=== PATIENT | male | born 1955 | race Caucasian/White ===

== ENCOUNTER → 2019-08-02 08:57 | Outpatient (CLI) | payer OTHER, SELFPAY ==
[2019-08-02 09:18] LABS: Add Manual Diff / Slide Review NO; Basophils Absolute Auto 0 /uL (0-100); Basophils Percent Auto 0.6 % (0-2); Eosinophils Absolute Auto 100 /uL (0-450); Eosinophils Percent Auto 1.6 % (2-4); Hematocrit 44.6 % (41-53); Hemoglobin 15.2 g/dL (13.5-17.5); Lymphocytes Absolute Auto 1200 /uL (1100-4500); Lymphocytes Percent Auto 16.1 % (25-40); Mean Corpuscular HGB Conc 34.2 % (30-36); Mean Corpuscular Hemoglobin 30.6 PG (26-34); Mean Corpuscular Volume 89.6 fL (80-100); Monocytes Absolute Auto 600 /uL (0-900); Monocytes Percent Auto 7.8 % (3-14); Neutrophils Absolute Auto 5400 /uL (1500-7000); Neutrophils Percent Auto 73.9 % (50-75); Platelet Count 164 X10^3/uL (150-400); Red Blood Cell Count 4.97 X10^6/uL (4.5-5.9); Red Cell Distribution Width 13.7 % (11.6-14.8); White Blood Cell Count 7.4 X10^3/uL (4.5-11.0)
[2019-08-02 09:30] LABS: Alanine Aminotransferase 28 IU/L (<50); Albumin 4.8 g/dL (3.5-5.0); Albumin Globulin Ratio 1.5 (1.0-2.8); Alkaline Phosphatase 84 U/L (38-126); Aspartate Aminotransferase 31 IU/L (17-59); BUN Creatinine Ratio 19.5 (6-22); Bilirubin Total 0.8 mg/dL (0.2-1.3); Blood Urea Nitrogen 15 mg/dL (9-20); Calcium 9.6 mg/dL (8.4-10.2); Carbon Dioxide 21 mmol/L (22-32); Chloride 110 mmol/L (98-107); Estimated Glomerular Filt Rate > 60.0 mL/min (>60); Globulin 3.2 g/dL (1.7-4.1); Glucose 134 mg/dL (80-110); HEMOLYSIS 27 (0-50); Potassium 4.1 mmol/L (3.4-5.1); Sodium 141 mmol/L (137-145)
[2019-08-02 10:01] LABS: Prostate Specific Antigen < 0.064 ng/mL (0.10-4.00)
== END ==
PROVIDERS: Referring Provider Internal Medicine Hematology & Oncology; Visit Provider Internal Medicine Hematology & Oncology
DX: C61 Malignant neoplasm of prostate (principal)
CPT/HCPCS: 36415; 80053; 84153; 85025

== ENCOUNTER 2019-09-16 09:35 | Emergency (ER) | payer OTHER, SELFPAY ==
[2019-09-16 09:42] VITALS: BP 174/83; PULSE 78; RESP 14; TEMP 36.4; O2SAT 99; BMI 31.2
--- NOTE | 2019-09-16 10:49 | ED.BURNSMOKE ---
HPI - Burn/Smoke Inhalation General Chief complaint: Burn/Smoke Inhalation Stated complaint: rt hand burn 1xweek poss infection Time Seen by Provider: 09/16/19 10:48 Source: patient Mode of arrival: Ambulatory Limitations: no limitations History of Present Illness HPI Narrative: 63-year-old male comes to the emergency department with a complaint of burn to his right hand. Patient states it happened a week ago. He states that the area of burn with stable in size for the 1st 3 days and then he started noticing redness and blistering outside the edge of the burn and spreading. He has not had any fevers. He has had clear yellowish drainage and some whitish discoloration of the skin over the initial burn. He states that it has continued to use regularly since then. Patient denies any increasing swelling of his hand in general, redness has not been tracking out elsewhere. Patient is currently in treatment for prostate cancer and is hopefully concluding his treatment in the next several months. He has not had any, no chest pain or shortness of breath or other GI or urinary symptoms. He is currently living out on [facility]. He did initially put Neosporin followed by bacitracin on the area and occlusive dressing that he received from the pharmacy. Related Data Home Medications Medication Instructions Recorded Confirmed celecoxib 200 mg capsule 200 mg PO BID 12/06/18 08/02/19 diltiazem HCl 180 mg capsule,24 240 mg PO DAILY 12/06/18 12/06/18 hr,extended release leuprolide (3 month) IM 12/06/18 12/06/18 medroxyprogesterone 10 mg tablet 10 mg PO DAILY 12/06/18 08/02/19 triamcinolone acetonide 0.1 % 1 applictn TOP DAILY 12/06/18 08/02/19 topical cream Previous Rx's Medication Instructions Recorded clindamycin HCl 300 mg PO QID #28 cap 09/16/19 silver sulfadiazine [Silvadene] 1 applictn TOP BID #25 gram 09/16/19 Allergies Allergy/AdvReac Type Severity Reaction Status Date / Time No Known Drug Allergies Allergy Verified 09/16/19 09:42 Review of Systems Review of Systems ROS Unobtainable: All systems reviewed & are unremarkable except as noted in HPI and below Patient History Social History (Reviewed 09/16/19 @ 11:04 by ADRIAN Molina Smoking Status: Unknown if ever smoked Smoking Status: Unknown if ever smoked alcohol intake frequency: 3 or more drinks per day Substance Use Type: does not use Exam Narrative Exam Narrative: GENERAL: Alert and oriented x three, obese male in mild distress. HEENT: Head normocephalic, atraumatic, EOMI, pupils reactive, face symmetric, moist mucous membranes NECK: Supple, full range of motion CARDIOVASCULAR: Regular rate and rhythm without murmurs, rubs or gallops. RESPIRATORY: Breath sounds equal bilaterally, no wheezes rales or rhonchi. ABDOMEN: Soft, nontender. Normoactive bowel sounds all 4 quadrants. No guarding or rebound, rigidity, no mass EXTREMITIES: Normal range of motion, no clubbing or edema. Neurovascularly intact. Patient has an area that is rhomboid and shaved over his right 1st metacarpal region. There is erythema with some serosanguineous drainage but there is also some surrounding erythema with small blisters. Patient does have some whitish discoloration of the skin overlaying the main burn consistent with healing. There is no erythema tracking elsewhere. No purulent drainage. No foul odor. NEUROLOGICAL: Cranial nerves II through XII grossly intact. Moving all extremities SKIN: Warm, dry, no petechiae, no rashes or lesions. Initial Vital Signs Initial Vital Signs: Vital Signs Temperature 97.5 F L 09/16/19 09:42 Pulse Rate 78 09/16/19 09:42 Respiratory Rate 14 09/16/19 09:42 Blood Pressure 174/83 H 09/16/19 09:42 Pulse Oximetry 99 09/16/19 09:42 Course Vital Signs Vital signs: Vital Signs - 8 hr 09/16/19 09:42 Temperature 97.5 F L Pulse Rate 78 Respiratory Rate 14 Blood Pressure 174/83 H Pulse Oximetry 99 MDM - Burn/Smoke Inhalation MDM Narrative Medical decision making narrative: Discussed with patient this may be more of a reaction or sensitivity to the topical treatments he was using or even the bandage from his description he has had issues with bandages causing sensitivities in the past. [place] him a prescription for some Silvadene cream topically as well as some oral antibiotic as he is immune suppressed. We discussed stopping the Neosporin and bacitracin that he had been using. He and changing the type of dressing that he was using and allow the area air dry regularly. Strict return precautions were discussed. Discharge Plan Departure Patient Disposition: Home Clinical Impression: Burn of hand, right Discharge Date/Time: 09/16/19 11:22 Activity Restrictions/Additional Instructions: Follow-up in the next week if your hand is not beginning to heal. I would expect to notice some improvement in the redness and blistering over the next 2-3 days. Take antibiotics until completely gone. Use topical antibiotic twice daily to affected area. Wound Care: Keep wound(s) clean and dry. Wash daily with soap and water only. Do not use over the counter products (alcohol or peroxide)on the wounds unless instructed by a physician. If wound condition worsens (increased/expanding redness, developing fluid blisters, or worsening pain), either contact your doctor for an urgent re-assessment , or return to the Emergency Department. Return to the Emergency Department for any new or worsening symptoms. Return if fever greater than 100.4 Fahrenheit, increased swelling, increasing pain or worsening symptoms such as increased discharge or spreading redness, purulent drainage, foul odor, increasing blistering or other new or concerning changes. Prescriptions: New silver sulfadiazine [Silvadene] 1 % cream 1 applictn TOP BID Qty: 25 RF: 0 clindamycin HCl 300 mg capsule 300 mg PO QID Qty: 28 RF: 0 No Action leuprolide (3 month) IM RF: 0 celecoxib [Celebrex] 200 mg capsule 200 mg PO BID RF: 0 diltiazem HCl 180 mg capsule,extended release 24 hr 240 mg PO DAILY RF: 0 medroxyprogesterone 10 mg tablet 10 mg PO DAILY RF: 0 triamcinolone acetonide 0.1 % cream 1 applictn TOP DAILY RF: 0
== END 2019-09-16 11:22 | disposition home or self-care (01) ==
PROVIDERS: Emergency Provider Emergency Medicine
DX: T23.001A Burn of unspecified degree of right hand, unspecified site, initial encounter (principal); E66.9 Obesity, unspecified
CPT/HCPCS: 99282

== ENCOUNTER → 2020-01-02 10:52 | Outpatient (CLI) | payer OTHER, SELFPAY | PROVIDERS: PCP Internal Medicine; Referring Provider Internal Medicine; Visit Provider Internal Medicine | DX: Z71.3 Dietary counseling and surveillance (principal) ==

== ENCOUNTER → 2020-02-20 06:59 | Outpatient (CLI) | payer OTHER, SELFPAY ==
[2020-02-20 09:04] LABS: Add Manual Diff / Slide Review NO; Basophils Absolute Auto 0 /uL (0-100); Basophils Percent Auto 0.4 % (0-2); Eosinophils Absolute Auto 200 /uL (0-450); Eosinophils Percent Auto 2.3 % (2-4); Hematocrit 45.1 % (41-53); Hemoglobin 15.4 g/dL (13.5-17.5); Lymphocytes Absolute Auto 1300 /uL (1100-4500); Mean Corpuscular HGB Conc 34.2 % (30-36); Mean Corpuscular Hemoglobin 31.7 PG (26-34); Mean Corpuscular Volume 92.5 fL (80-100); Monocytes Absolute Auto 700 /uL (0-900); Monocytes Percent Auto 9.6 % (3-14); Neutrophils Absolute Auto 5100 /uL (1500-7000); Neutrophils Percent Auto 69.7 % (50-75); Platelet Count 199 X10^3/uL (150-400); Red Blood Cell Count 4.87 X10^6/uL (4.5-5.9); Red Cell Distribution Width 13.2 % (11.6-14.8); White Blood Cell Count 7.4 X10^3/uL (4.5-11.0)
[2020-02-20 09:25] LABS: Alanine Aminotransferase 63 IU/L (<50); Albumin 4.6 g/dL (3.5-5.0); Albumin Globulin Ratio 1.5 (1.0-2.8); Alkaline Phosphatase 93 U/L (38-126); Aspartate Aminotransferase 43 IU/L (17-59); BUN Creatinine Ratio 21.9 (6-22); Bilirubin Total 0.8 mg/dL (0.2-1.3); Blood Urea Nitrogen 16 mg/dL (9-20); Calcium 9.2 mg/dL (8.4-10.2); Carbon Dioxide 28 mmol/L (22-32); Chloride 106 mmol/L (98-107); Estimated Glomerular Filt Rate > 60.0 mL/min (>60); Glucose 94 mg/dL (80-110); HEMOLYSIS < 15 (0-50); Potassium 3.9 mmol/L (3.4-5.1); Sodium 141 mmol/L (137-145); Total Protein 7.6 g/dL (6.3-8.2)
[2020-02-20 09:49] LABS: Prostate Specific Antigen < 0.064 ng/mL (0.10-4.00)
[2020-02-20 14:46] LABS: Cholesterol 214 mg/dL (140-199); HDL Cholesterol 42 mg/dL (40-60); LDL Cholesterol Calculated 137 mg/dL (<100); Triglycerides 176 mg/dL (35-150)
[2020-02-21 17:04] LABS: Testosterone 47.1 ng/dL (71.8-623)
== END ==
PROVIDERS: Internal Medicine; PCP Internal Medicine; Referring Provider Internal Medicine; Visit Provider Internal Medicine
DX: C61 Malignant neoplasm of prostate (principal)
CPT/HCPCS: 36415; 80053; 80061; 84153; 84403; 85025

== ENCOUNTER → 2020-05-14 13:00 | Oncology outpatient (ONC) | payer OTHER, SELFPAY ==
--- NOTE | 2019-07-31 15:07 | ONC.SCHED ---
Addendum entered by Carly Juan 07/31/19 15:30: Notified patient of out of network benefits and patient agreed to pay amount due based on note below. Original Note: Prior auth is not needed to come here for visits or Lupron however, we are not in Network and so the patient's insurance plan will pay 70% after deductible.
--- NOTE | 2019-08-02 08:15 | ONC.MSW ---
Description: New Pt Referral Reason: Lupron shot, labs Activity: Pt is a [facility] patient, he is due for his last Lupron shot, however due to the virus is not wanting to go back down to [facility]. 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 This will be his only visit.
--- NOTE | 2019-08-02 09:15 | P.PNONC_ITS ---
PN -Subjective Interval history: The patient is a 63-year-old gentleman, followed by Dr. Venu Bradford, with high risk T1c, Sandor 4+5=9, PSA 10.9 for adenocarcinoma of the prostate in 12 of 15 cores. Prostate biopsies on 10/05/2017 showed Sandor 4+5=9 adenocarcinoma in the prostate in 12/15 cores with positive extraprostatic extension. Systemic imaging raised the question of left external iliac adenopathy on Axumin PET imaging, but with no evidence of distant osseous metastases. His bone scan showed foci in the lumbar spine and distal femur, consistent with degenerative changes. CT of the chest abdomen and pelvis showed an equivocal left para- aortic lymph node inferior to the left renal vein, which did not eliminate on his PET scan. He started Lupron on 11/30/2017, with the intent to remain on treatment for 1- 1/2 to 2 years. He is due for his final leuprolide injection today. Primary radiation was delivered between 02/01/2016 and 04/05/2018. Lymph nodes in the pelvis as well as the prostate received 4860 cGy using an arced VMAT technique with 180 cGy per day. He subsequently had a boost to the prostate alone to a total dose of 7920 cGy. He has done fairly well, struggling with insomnia. He has nocturia. No hematuria or dysuria. No incontinence. In the past he used to vape CBD, but di scontinued when reports of lung injury were published. Weight increase has made it more difficult to exercise. He is due for leuprolide 22.5 mg IM today, his final dose. PSA at [facility] has been less than 0.03 ng/mL on 08/17/2018, 02/01/2019, and 05/09/2019. PSA on 08/02/2019, done at [facility], was less than 0.064 ng/mL. - Additional ROS All systems PM: reviewed and no additional remarkable complaints except as stated Home Medications and Allergies Home Medications Medication Instructions Recorded Confirmed Type celecoxib 200 mg capsule 200 mg PO BID 12/06/18 12/06/18 History diltiazem HCl 180 mg capsule,24 180 mg PO DAILY 12/06/18 12/06/18 History hr,extended release leuprolide (3 month) IM 12/06/18 12/06/18 History medroxyprogesterone 10 mg tablet 10 mg PO DAILY 12/06/18 12/06/18 History triamcinolone acetonide 0.1 % 1 applictn TOP DAILY PRN 12/06/18 12/06/18 History topical cream Allergies Allergy/AdvReac Type Severity Reaction Status Date / Time No Known Drug Allergies Allergy Unverified 12/06/18 10:29 Exam Narrative: HEENT: Pupils equally round reactive to light extraocular muscles intact sclerae anicteric conjunctiva pink mucous membranes moist no oral lesions Nodes no palpable adenopathy in the neck axilla or groin Chest: Clear throughout Cardiac exam regular rate and rhythm with normal S1 and S2 Abdomen: Soft nontender with normoactive bowel tones no splenomegaly or masses Extremities: Trace pedal edema 2+ distal pulses no calf tenderness Assessment and Plan (1) Prostate cancer Current visit: No Status: Acute The patient is now about 22 months from his original diagnosis of Sandor 4+5=9 adenocarcinoma of the prostate on 10/05/2017. Imaging at diagnosis raised concern for left external iliac adenopathy, but no evidence of other disease. CT scan showed a left periaortic lymph node, which did not illuminate on PET imaging. He started Lupron on 11/30/2017, and has been on treatment every 3 months, due for his final injection of leuprolide 22.5 mg IM on 08/02/2019. He notes occasional hot flashes, partially controlled with medroxyprogesterone. Proceed with treatment. He received 4860 cGy radiation to the pelvis and prostate, with a subsequent boost to the prostate alone to a total dose of 7920 cGy, completed in April 2018. He had acute bowel and bladder symptoms associated with radiation, which have for the most part improved, although he still has urgency. Symptoms have improved with increased Imodium and fiber. Return in 3 months with repeat laboratory studies and clinical visit. No further leuprolide is scheduled.
[2019-08-02 10:07] VITALS: BP 130/86; PULSE 63; RESP 18; TEMP 36.3; O2SAT 98
[2019-08-02] MEDS: LEUPROLIDE DEPOT [ELIGARD] 22.5 MG SYR SUBCUT (11:14)
[2019-11-13 09:17] LABS: Add Manual Diff / Slide Review NO; Basophils Absolute Auto 100 /uL (0-100); Basophils Percent Auto 0.9 % (0-2); Eosinophils Absolute Auto 200 /uL (0-450); Eosinophils Percent Auto 2.8 % (2-4); Hematocrit 43.9 % (41-53); Hemoglobin 15.1 g/dL (13.5-17.5); Lymphocytes Absolute Auto 1300 /uL (1100-4500); Lymphocytes Percent Auto 17.2 % (25-40); Mean Corpuscular HGB Conc 34.5 % (30-36); Mean Corpuscular Hemoglobin 31.4 PG (26-34); Mean Corpuscular Volume 91.1 fL (80-100); Monocytes Absolute Auto 700 /uL (0-900); Monocytes Percent Auto 8.8 % (3-14); Neutrophils Absolute Auto 5500 /uL (1500-7000); Neutrophils Percent Auto 70.3 % (50-75); Platelet Count 176 X10^3/uL (150-400); Red Blood Cell Count 4.82 X10^6/uL (4.5-5.9); Red Cell Distribution Width 13.7 % (11.6-14.8); White Blood Cell Count 7.9 X10^3/uL (4.5-11.0)
[2019-11-13 09:25] LABS: Alanine Aminotransferase 36 IU/L (<50); Albumin 4.6 g/dL (3.5-5.0); Albumin Globulin Ratio 1.6 (1.0-2.8); Alkaline Phosphatase 82 U/L (38-126); Aspartate Aminotransferase 33 IU/L (17-59); BUN Creatinine Ratio 19.6 (6-22); Bilirubin Total 0.8 mg/dL (0.2-1.3); Blood Urea Nitrogen 18 mg/dL (9-20); Calcium 9.9 mg/dL (8.4-10.2); Carbon Dioxide 27 mmol/L (22-32); Chloride 106 mmol/L (98-107); Estimated Glomerular Filt Rate > 60.0 mL/min (>60); Globulin 2.9 g/dL (1.7-4.1); Glucose 102 mg/dL (80-110); HEMOLYSIS < 15 (0-50); Potassium 4.7 mmol/L (3.4-5.1); Sodium 141 mmol/L (137-145); Total Protein 7.5 g/dL (6.3-8.2)
[2019-11-13 09:59] LABS: Prostate Specific Antigen < 0.064 ng/mL (0.10-4.00)
[2019-11-15 09:24] VITALS: BP 146/87; PULSE 70; RESP 18; TEMP 36.6; O2SAT 98
--- NOTE | 2019-11-15 10:00 | ONC.MSW ---
Description: Advanced Directive, Support Activity: Pt indicated that he was interested in discussing the POLST form, and that he was having sexual difficulties as a result of his Lupron. HELPER SHEAR OPERATOR provided the POLST and discussed how to complete, he states that he already has an updated Living Will and Durable Power of Sausage Machine Operator (). He reports that he has been in treatment for the last 2-years at [facility], just finished his last Lupron shot, and is here to continue active surveillance/survivorship. He reports symptoms of hot flashes, emotional lability, and sexual dysfunction, even with the use of ED medications. HELPER SHEAR OPERATOR offered teaching and information re: normalizing this experience, and encouraged him to discuss his specific concerns with Dr. Cervantes during his appt. today. He declines the need for further counseling, and states that he did have a few sessions of prostate cancer specific counseling while at [facility]. Completed the form during this visit, pt wishes to be a Full Code. No further needs indicated at this time.
--- NOTE | 2019-11-15 17:11 | P.PNONC_ITS ---
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 In October of 2017 at a prostate biopsy that showed a Sandor 4+5=9 carcinoma in 12 of 15 cores with a PSA of 10.9. Bone scan was negative. CT scan of the chest, abdomen and pelvis showed a possible left periaortic lymph node. PET scan (Axumin) showed a possible external iliac lymph node on the left but the periaortic node was negative. In October of 2017 he started on Lupron. He subsequently underwent radiation therapy from January to April of 2018. His last Lupron injection was 3 months ago in August. He comes today for a follow-up visit having completed 2 years of androgen deprivation therapy. He is having issues with hot flashes. They are a little better over the last week or 2 and he has reduced his Megace from 2 pills a day to 1. He also has had a little more energy and has been able to exercise more. He has lost some weight recently. His libido has not recovered yet. He continues to have episodic diarrhea. He is trying to eat a low-fiber diet which has helped with this. He notes dyspnea on exertion but attributes this to deconditioning and it has not been changed for a quite some time. He denies other pain, bleeding, localized weakness, fever, chills, nausea, vomiting, cough or shortness of breath. All other systems are negative. Past medical history 1. He is . 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 He is alone in the office today. His past history is otherwise reviewed was previous notes. - Patient Self-Reported Symptoms SR respiratory issues: Shortness of breath SR Gastrointestinal issues: Diarrhea SR Genitourinary issues: Sexual difficulties SR Musculoskeletal issues: Joint pain or swelling SR Endocrine issues: Hot flashes Home Medications and Allergies Home Medications Medication Instructions Recorded Confirmed Type celecoxib 200 mg capsule 200 mg PO BID 12/06/18 11/15/19 History diltiazem HCl 180 mg capsule,24 240 mg PO DAILY 12/06/18 11/15/19 History hr,extended release medroxyprogesterone 10 mg tablet 10 mg PO DAILY 12/06/18 11/15/19 History triamcinolone acetonide 0.1 % 1 applictn TOP DAILY 12/06/18 11/15/19 History topical cream Allergies Allergy/AdvReac Type Severity Reaction Status Date / Time No Known Drug Allergies Allergy Verified 09/16/19 09:42 Exam Vital signs: Vital Signs Temp Pulse Resp BP Pulse Ox 11/15/19 09:24 97.8 F 70 18 146/87 H 98 Intake and Output 11/15/19 11/15/19 11/15/19 07:59 15:59 23:59 Other: Weight 120.5 kg Patient Weight 11/15/19 23:59 Weight 120.5 kg Narrative: He was awake, alert and orient x3. Fullyd in no acute distress. Results - Labs Laboratory Last Values WBC 7.9 X10^3/uL (4.5-11.0) 11/13/19 08:57 RBC 4.82 X10^6/uL (4.5-5.9) 11/13/19 08:57 Hgb 15.1 g/dL (13.5-17.5) 11/13/19 08:57 Hct 43.9 % (41-53) 11/13/19 08:57 MCV 91.1 fL (80-100) 11/13/19 08:57 MCH 31.4 PG (26-34) 11/13/19 08:57 MCHC 34.5 % (30-36) 11/13/19 08:57 RDW 13.7 % (11.6-14.8) 11/13/19 08:57 Plt Count 176 X10^3/uL (150-400) 11/13/19 08:57 Neut % (Auto) 70.3 % (50-75) 11/13/19 08:57 Lymph % (Auto) 17.2 % (25-40) L 11/13/19 08:57 Caroline % (Auto) 8.8 % (3-14) 11/13/19 08:57 Eos % (Auto) 2.8 % (2-4) 11/13/19 08:57 Baso % (Auto) 0.9 % (0-2) 11/13/19 08:57 Neut # (Auto) 5500 /uL (6704-2854) 11/13/19 08:57 Lymph # (Auto) 1300 /uL (6128-9969) 11/13/19 08:57 Caroline # (Auto) 700 /uL (0-900) 11/13/19 08:57 Eos # (Auto) 200 /uL (0-450) 11/13/19 08:57 Baso # (Auto) 100 /uL (0-100) 11/13/19 08:57 Sodium 141 mmol/L (137-145) 11/13/19 08:57 Potassium 4.7 mmol/L (3.4-5.1) 11/13/19 08:57 Chloride 106 mmol/L (98-107) 11/13/19 08:57 Carbon Dioxide 27 mmol/L (22-32) 11/13/19 08:57 BUN 18 mg/dL (9-20) 11/13/19 08:57 Creatinine 0.92 mg/dL (0.66-1.25) 11/13/19 08:57 Estimated GFR > 60.0 mL/min (>60) 11/13/19 08:57 BUN/Creatinine Ratio 19.6 (6-22) 11/13/19 08:57 Glucose 102 mg/dL (80-110) 11/13/19 08:57 Calcium 9.9 mg/dL (8.4-10.2) 11/13/19 08:57 Total Bilirubin 0.8 mg/dL (0.2-1.3) 11/13/19 08:57 AST 33 IU/L (17-59) 11/13/19 08:57 ALT 36 IU/L (<50) 11/13/19 08:57 Alkaline Phosphatase 82 U/L (38-126) 11/13/19 08:57 Total Protein 7.5 g/dL (6.3-8.2) 11/13/19 08:57 Albumin 4.6 g/dL (3.5-5.0) 11/13/19 08:57 Globulin 2.9 g/dL (1.7-4.1) 11/13/19 08:57 Albumin/Globulin Ratio 1.6 (1.0-2.8) 11/13/19 08:57 Prostate Specific Ag < 0.064 ng/mL (0.10-4.00) L 11/13/19 08:57 Assessment and Plan (1) Prostate cancer Status: Acute Dr. Weir continues to do well. He has PSA remains undetectable. His other lab work is normal. He has completed 2 years of anti androgen deprivation therapy. We discussed standard follow-up. Would plan to check a PSA and clinical assessment every 6 months until he is 5 years out and then we could switch to an annual follow-up. We also discussed the importance of regular exercise of at least 3 hours a week. We reviewed the importance of a Mediterranean diet. He was given written information about these interventions and we discussed strategies to implemented maintain these recommendations. He was also referred to nutrition services for more information about a Mediterranean diet. He is also in need of a primary care physician. He was referred to Dr. Stanley Howard's group for this. Will plan to see him back here in about 6 months with a CBC, CMP, and PSA prior. Call if any other problems should develop in the interim. Will plan to watch month treatment LS shows evidence of disease progression in the future. Discussed the fact that his PSA is likely to go up off of Lupron since his absentee-shawnee prostate remains in place. Accordingly, we would not worry unless it were to go more than 2 units above saloni according to NCCN guideline. I personally spent 26 minutes in today's [id number] visit with greater than 50% of the time spent in counseling regarding the issues outlined above.
--- NOTE | 2019-11-29 15:58 | ONC.SCHED ---
Spoke with Humera in Dietary and she requested I fax the order/referral to [phone]. She will call the patient tomorrow.
--- NOTE | 2019-11-29 16:53 | ONC.SCHED ---
Faxed referral to Dr. Stanley Howard.
--- NOTE | 2020-02-08 15:34 | PC.NURSE ---
Pt requesting to have testosterone lab added to next lab draw, in May 2020. Will place this note in providers box as request to enter orders if appropriate.
[2020-02-08] MEDS: INFLUENZA HD VACCINE 0.7 ML SYRINGE IM (15:58)
--- NOTE | 2020-04-01 11:29 | PC.NURSE ---
Pt c/o not having an erection for previous 2 years. [facility] recommends therapeutic dose of cialis of 5 mg daily. Would like to know what Dr. Cervantes recommends. His Testosterone level on 02/20/20 was 47.1 ng/dL L (71.8-623)
[2020-05-07 10:20] LABS: Add Manual Diff / Slide Review NO; Basophils Absolute Auto 0 /uL (0-100); Basophils Percent Auto 0.7 % (0-2); Eosinophils Absolute Auto 200 /uL (0-450); Eosinophils Percent Auto 2.8 % (2-4); Hematocrit 43.6 % (41-53); Hemoglobin 14.9 g/dL (13.5-17.5); Lymphocytes Absolute Auto 1100 /uL (1100-4500); Mean Corpuscular Hemoglobin 31.2 PG (26-34); Mean Corpuscular Volume 91.7 fL (80-100); Monocytes Absolute Auto 600 /uL (0-900); Monocytes Percent Auto 9.9 % (3-14); Neutrophils Absolute Auto 4200 /uL (1500-7000); Neutrophils Percent Auto 68.6 % (50-75); Platelet Count 147 X10^3/uL (150-400); Red Blood Cell Count 4.76 X10^6/uL (4.5-5.9); Red Cell Distribution Width 13.4 % (11.6-14.8)
[2020-05-07 10:22] LABS: Alanine Aminotransferase 53 IU/L (<50); Albumin 4.2 g/dL (3.5-5.0); Albumin Globulin Ratio 1.6 (1.0-2.8); Alkaline Phosphatase 83 U/L (38-126); Aspartate Aminotransferase 42 IU/L (17-59); BUN Creatinine Ratio 23.3 (6-22); Bilirubin Total 0.5 mg/dL (0.2-1.3); Blood Urea Nitrogen 17 mg/dL (9-20); Calcium 9.6 mg/dL (8.4-10.2); Carbon Dioxide 28 mmol/L (22-32); Chloride 107 mmol/L (98-107); Estimated Glomerular Filt Rate > 60.0 mL/min (>60); Globulin 2.7 g/dL (1.7-4.1); Glucose 110 mg/dL (80-110); HEMOLYSIS < 15 (0-50); Potassium 4.1 mmol/L (3.4-5.1); Sodium 139 mmol/L (137-145); Total Protein 6.9 g/dL (6.3-8.2)
[2020-05-07 10:55] LABS: Testosterone 98.5 ng/dL (71.8-623)
[2020-05-14 13:13] VITALS: BP 118/53; PULSE 59; RESP 16; TEMP 36.9; O2SAT 97
--- NOTE | 2020-05-14 13:42 | ONC.PN ---
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 In October of 2017 at a prostate biopsy that showed a Sandor 4+5=9 carcinoma in 12 of 15 cores with a PSA of 10.9. Bone scan was negative. CT scan of the chest, abdomen and pelvis showed a possible left periaortic lymph node. PET scan (Axumin) showed a possible external iliac lymph node on the left but the periaortic node was negative. In October of 2017 he started on Lupron. He subsequently underwent radiation therapy from January to April of 2018. His last Lupron injection was in August. He comes today for a follow-up visit having completed 2 years of androgen deprivation therapy. His hot flashes are better. Then only occasional. His fatigue is better. He is exercising 30 minutes today, mostly walking. He has back pain when he walks for a longer period of time but he does not really have this trouble when he is biking. He has been eating a Mediterranean diet and this has been going well. He still has erectile dysfunction despite taking Cialis 5 mg daily. He denies any new pain, bleeding, localized weakness, fever, chills, nausea, vomiting, cough or shortness of breath. All other systems are negative. Past medical history 1. He is . 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 He is alone in the office today. His past history is otherwise reviewed was previous notes. - Patient Self-Reported Symptoms SR respiratory issues: Shortness of breath SR Gastrointestinal issues: Diarrhea SR Genitourinary issues: Sexual difficulties SR Musculoskeletal issues: Back or neck pain SR Endocrine issues: Hot flashes Home Medications and Allergies Home Medications Medication Instructions Recorded Confirmed Type celecoxib 200 mg capsule 200 mg PO BID 12/06/18 05/14/20 History diltiazem HCl 180 mg capsule,24 240 mg PO DAILY 12/06/18 05/14/20 History hr,extended release medroxyprogesterone 10 mg tablet 10 mg PO DAILY 12/06/18 05/14/20 History triamcinolone acetonide 0.1 % 1 applictn TOP DAILY 12/06/18 05/14/20 History topical cream tadalafil [Cialis] 5 mg PO DAILY #30 tab 04/02/20 05/14/20 Rx Allergies Allergy/AdvReac Type Severity Reaction Status Date / Time No Known Drug Allergies Allergy Verified 09/16/19 09:42 Exam Vital signs: Vital Signs Temp Pulse Resp BP Pulse Ox 05/14/20 13:13 98.4 F 59 L 16 118/53 L 97 Intake and Output 05/13/20 05/14/20 05/14/20 23:59 07:59 15:59 Other: Weight 120.3 kg Patient Weight 05/14/20 23:59 Weight 120.3 kg Narrative: He was awake, alert and orient x3. Fullyd in no acute distress. Results - Labs Laboratory Last Values WBC 6.0 X10^3/uL (4.5-11.0) 05/07/20 09:56 RBC 4.76 X10^6/uL (4.5-5.9) 05/07/20 09:56 Hgb 14.9 g/dL (13.5-17.5) 05/07/20 09:56 Hct 43.6 % (41-53) 05/07/20 09:56 MCV 91.7 fL (80-100) 05/07/20 09:56 MCH 31.2 PG (26-34) 05/07/20 09:56 MCHC 34.0 % (30-36) 05/07/20 09:56 RDW 13.4 % (11.6-14.8) 05/07/20 09:56 Plt Count 147 X10^3/uL (150-400) L 05/07/20 09:56 Neut % (Auto) 68.6 % (50-75) 05/07/20 09:56 Lymph % (Auto) 18.0 % (25-40) L 05/07/20 09:56 [place] % (Auto) 9.9 % (3-14) 05/07/20 09:56 Eos % (Auto) 2.8 % (2-4) 05/07/20 09:56 Baso % (Auto) 0.7 % (0-2) 05/07/20 09:56 Neut # (Auto) 4200 /uL (0335-5428) 05/07/20 09:56 Lymph # (Auto) 1100 /uL (5701-9073) 05/07/20 09:56 [place] # (Auto) 600 /uL (0-900) 05/07/20 09:56 Eos # (Auto) 200 /uL (0-450) 05/07/20 09:56 Baso # (Auto) 0 /uL (0-100) 05/07/20 09:56 Sodium 139 mmol/L (137-145) 05/07/20 09:56 Potassium 4.1 mmol/L (3.4-5.1) 05/07/20 09:56 Chloride 107 mmol/L (98-107) 05/07/20 09:56 Carbon Dioxide 28 mmol/L (22-32) 05/07/20 09:56 BUN 17 mg/dL (9-20) 05/07/20 09:56 Creatinine 0.73 mg/dL (0.66-1.25) 05/07/20 09:56 Estimated GFR > 60.0 mL/min (>60) 05/07/20 09:56 BUN/Creatinine Ratio 23.3 (6-22) H 05/07/20 09:56 Glucose 110 mg/dL (80-110) 05/07/20 09:56 Calcium 9.6 mg/dL (8.4-10.2) 05/07/20 09:56 Total Bilirubin 0.5 mg/dL (0.2-1.3) 05/07/20 09:56 AST 42 IU/L (17-59) 05/07/20 09:56 ALT 53 IU/L (<50) H 05/07/20 09:56 Alkaline Phosphatase 83 U/L (38-126) 05/07/20 09:56 Total Protein 6.9 g/dL (6.3-8.2) 05/07/20 09:56 Albumin 4.2 g/dL (3.5-5.0) 05/07/20 09:56 Globulin 2.7 g/dL (1.7-4.1) 05/07/20 09:56 Albumin/Globulin Ratio 1.6 (1.0-2.8) 05/07/20 09:56 Prostate Specific Ag 0.070 ng/mL (0.10-4.00) L 05/07/20 09:56 Testosterone Level 98.5 ng/dL (71.8-623) 05/07/20 09:56 Assessment and Plan (1) Prostate cancer Status: Acute Dr. Weir continues to do well. His PSA is barely into the detectable range. I explained that this is expected now he is off of androgen deprivation therapy and has not had a prostatectomy. His testosterone is come up into the low normal range. This is also expected off androgen deprivation therapy. His other lab work is normal. He has completed 2 years of anti androgen deprivation therapy as well as external beam radiation. We discussed standard follow-up. Would plan to check a PSA and clinical assessment every 6 months until he is 5 years out and then we could switch to an annual follow-up. We also discussed the importance of regular exercise of at least 3 hours a week. We reviewed the importance of a Mediterranean diet. We discuss using an exercise bike, especially in the winter. He continues to have erectile dysfunction. He will be referred to Urology for this. That referral was made today. Will continue to watch him off treatment. He will return in 6 months for follow-up with labs prior. Discussed the fact that his PSA is likely continue to go up but is lungs are remains below 2 and there are no other clinical issues, we would typically not worry about that. I spent 8 minutes in preparation, 22 minutes with the patient, 3 minutes entering orders a 6 minutes doing dictation for a total of 39 minutes.
--- NOTE | 2020-05-23 12:08 | ONC.SCHED ---
Gave referral to Urology last week forgot to put chart note in. Urology will be calling patient today to get him scheduled. Patient called asking about the referral and I called him back letting him know it was taken care of and to look out for the referral.
== END ==
PROVIDERS: Internal Medicine Hematology & Oncology; PCP Internal Medicine; Visit Provider Internal Medicine
DX: C61 Malignant neoplasm of prostate (principal)
CPT/HCPCS: 36415; 80053; 84153; 84403; 85025; 90471; 90662; 96372; 99214; 99215; J9217

== ENCOUNTER → 2021-06-04 09:01 | Outpatient (CLI) | payer OTHER, SELFPAY | PROVIDERS: PCP Internal Medicine; Referring Provider Orthopaedic Surgery; Visit Provider Orthopaedic Surgery | DX: Z01.818 Encounter for other preprocedural examination (principal) | CPT/HCPCS: 93005 ==

== ENCOUNTER → 2021-06-23 09:08 | Outpatient (CLI) | payer OTHER, SELFPAY ==
[2021-06-23 12:37] LABS: COVID19 -Nasal RAPID Negative (Negative)
== END ==
PROVIDERS: PCP Internal Medicine; Visit Provider Family Medicine Sleep Medicine
DX: Z20.822 Contact with and (suspected) exposure to COVID-19 (principal)
CPT/HCPCS: 87635; C9803

== ENCOUNTER 2021-06-25 06:33 | Day surgery (SDC) | payer OTHER, SELFPAY ==
[2021-06-23 13:53] VITALS: BMI 33.3
--- NOTE | 2021-06-25 06:53 | SUR.PREOP ---
Addendum entered by Puja Bahena R.N. 06/25/21 09:30: 0930-surgery cancelled. patient informed. Dr Coley here to speak with patient . plan for wednesday afternoon. pt aware of need for new covid test needed for Wednesday. npo information given by Dr Coley to patient. Discharged home ambulatory with all belongings to 's care/care. Addendum entered by Puja Bahena R.N. 06/25/21 08:36: 0815-hourly rounding. check on patient. no new needs. updated on progress. Reported to patient can update , next decision to be made at 9:30 am as to if surgery is a go or not today. Patient given angelo and has cell phone. call light remains at side in reach. Addendum entered by Puja Bahena R.N. 06/25/21 07:38: 0730am- Dr Coley here to talk with patient, explain delay and potentially able to add on for Wednesday if cancelled today. Will update patient when hospital decisions are made. patient understanding and in good spirits. Original Note: 06/25/21-649 patient brought back into preop area. Aware surgeries are all on Hold for now, will continue with preop assessment/data collection. IV on hold,preps on hold,meds on hold til notified surgery is a go for today.
[2021-06-25 07:05] VITALS: BP 150/91; PULSE 62; RESP 16; TEMP 37.1; O2SAT 97
[2021-06-25 07:08] VITALS: BMI 33.3
== END 2021-06-25 06:40 | disposition home or self-care (01) ==
PROVIDERS: PCP Internal Medicine; Referring Provider Orthopaedic Surgery; Visit Provider Orthopaedic Surgery
DX: M17.12 Unilateral primary osteoarthritis, left knee (principal); Z53.09 Procedure and treatment not carried out because of other contraindication
CPT/HCPCS: 27447; J1100; J2250; J2274; J2405; J2704; J3010

== ENCOUNTER → 2021-06-25 10:04 | Outpatient (CLI) | payer OTHER, SELFPAY ==
[2021-06-25 11:37] LABS: COVID19 -Nasal RAPID Negative (Negative)
== END ==
PROVIDERS: PCP Internal Medicine; Visit Provider Family Medicine Sleep Medicine
DX: Z20.822 Contact with and (suspected) exposure to COVID-19 (principal)
CPT/HCPCS: 87635; C9803

== ENCOUNTER 2021-06-27 13:13 | Day surgery (SDC) | payer OTHER, SELFPAY ==
[2021-06-25 12:35] VITALS: BMI 33.3
[2021-06-27] VITALS (10 sets, daily range): BP systolic 93–153; BP diastolic 56–108; PULSE 53–66; RESP 10–17; TEMP 36.3–36.9; O2SAT 85–97; BMI 33.3
--- NOTE | 2021-06-27 14:14 | SUR.OPER ---
Supine on padded OR bed. Pillow under head, arms secured on padded armboards <90 degree abduction. Safety belt across torso. Non-operative leg secured with tape over blanket over lower leg. Operative leg secured in DeMayo positioner.
[2021-06-27] MEDS: LACTATED RINGERS 1,000 ML 84 ML IV (15:00)
--- NOTE | 2021-06-27 15:00 | DI.RAD.S_ITS ---
PROCEDURE: XR KNEE LT 1TO2V INDICATIONS: post op total knee TECHNIQUE: 2 view(s) of the knee acquired. COMPARISON: None. FINDINGS: Bones: Patient is status post knee joint arthroplasty. Hardware components are in expected positions. 2.1 cm sclerotic focus in the distal femoral diaphysis, most consistent with a bone infarct. Visualized bony structures are intact. Soft tissues: Overlying postoperative changes are noted. IMPRESSION: Expected postsurgical change. Dictated by: Odell Orlando M.D. on 06/27/2021 at 19:24 Approved by: Odell Orlando M.D. on 06/27/2021 at 19:25
[2021-06-27] MEDS: ACETAMINOPHEN 325 MG TABLET 975 MG PO (15:02)
[2021-06-27] MEDS: CELECOXIB 200 MG CAPSULE PO ×2 (15:03→20:46)
[2021-06-27] MEDS: PREGABALIN 75 MG CAPSULE PO (15:03)
--- NOTE | 2021-06-27 15:08 | PM.PREOP ---
Pre-operative Note COVID-19 COVID-19 status: Negative Result date/Date tested (Pos, Neg/Pending): 06/25/21 Criteria for continued procedure: Increased loss of function, Continuing or worsening of significant or severe pain and Non-surgical alternatives not available or appropriate per current SOC Interval Note History & Physical reviewed/Exam performed by Physician: Yes Changes to H&P: No
[2021-06-27] MEDS: CEFAZOLIN 2 GM/20 ML SYRINGE IV (15:15)
[2021-06-27] MEDS: TRANEXAMIC ACID 1,000 MG VIAL 1000 MG INJ ×2 (15:18→16:44)
[2021-06-27] MEDS: BUPIVACAINE LIPOSOME 266 MG/20 ML VIAL INJ (16:26)
[2021-06-27] MEDS: BUPIVACAINE 0.25% (PF) 60 ML, EPINEPHrine 0.3 MG INJ (16:28)
[2021-06-27] MEDS: MORPHINE 4 MG/ML INJ INJ (16:31)
--- NOTE | 2021-06-27 17:04 | P.OP_ITS ---
Operative Date/Time/Diagnoses Date of procedure: 06/27/21 Time of procedure: 17:05 Pre-op diagnosis: Left knee osteoarthritis Post-op diagnosis: same Procedure & Clinicians Procedure: Left total knee replacement Same procedure as scheduled: Yes Indications: The patient has had progressively worsening left knee pain with radiographic changes consistent with arthritis. Non-operative management has failed and the patient has requested total knee replacement. The risks, benefits and alternatives to surgery were discussed with the patient prior to proceeding. Risks discussed included, but were not limited to, failure to relieve pain, stiffness, infection, nerve damage, deep venous thrombosis, pulmonary embolism, stroke, coma, heart attack, permanent paralysis and , as well as the potential need for eventual revision of the prosthetic. Surgeon: Herve Coley Heel Builder Machine: Matilde Arthur Click Yes if Unassisted: No Anesthesia Type: General, Spinal and Local Operative Notes Findings: Severe osteoarthritis of the patellofemoral joint. Moderate medial and lateral osteoarthritis. There appeared to be an inflammatory component to the osteoarthritis. Closure Type: primary Specimen(s): none sent Prosthetic devices, grafts, tissues, transplants, or devices: Implants used in this procedure were manufactured by the [email or web address] and [email or web address] and included the BCS II Journey total knee replacement with a size 7 Oxinium femoral component, a size 7 non porous tibial base plate, a 9 mm cross- linked polyethylene tibial insert and a 32 mm oval Odalys II patella. Applied: implant(s) Estimated Blood Loss (mL): 50 Blood products transfused: none Tourniquet time (min): 52 Procedure in detail: The patient was seen in the pre-operative area, where the left knee was identified as the operative site and this was marked with my initials. The patient received pre-operative antibiotics, and was taken to the operating room and placed on the operative table in the supine position. After satisfactory anesthesia, a perinatal breastfeeding assistant out was performed. The left leg was encircled with a tourniquet about the proximal thigh, and the leg was prepared from the toes to the tourniquet with ChloroPrep in the usual fashion and draped through sterile drapes. The leg was elevated and exsanguinated with Eschmark bandage and the tourniquet inflated to 250 mmHg pressure. The knee was approached through an approximately 18 cm incision centered over the patella and carried into the knee through a medial parapatellar arthrotomy. The anterior osteophytes and soft tissues were removed. The rotational landmarks of Kacey's line and the transepicondylar axis were marked on the femur with electrocautery, and intramedullary guide holes for the femur and tibia were created. The distal femoral cut was made in 6 degrees of valgus using the intramedullary guide at the primary cut setting. The proximal tibial cut was then made using the intramedullary guide, taking 9 mm of bone off the less involved side. The extension gap was checked and the rotation of the femoral component confirmed with the gap balancing blocks. The anterior, posterior and chamfer cuts were then made. The posterior osteophytes and soft tissues were then removed. The posterior capsule was injected with part of a mixture of 60 ml 0.25% Marcaine mixed with 20 ml Exparel and 4 mg of morphine for post-operative pain control. The remainder of this mixture was injected into the capsule and subcutaneous tissues during cement curing. The tibia was prepared with the rotation set by an extra medullary guide. Trial tibial and femoral components were then placed and the intercondylar notch cut through the femoral trial. Range of motion was 0-130 degrees, with good s tability throughout the range. The patella was then cut to accommodate the patellar prosthetic. There was no need for a lateral release. The trials were then removed, and the femoral hole plugged with a bone plug. The bone was prepared with pulsatile lavage, and dried with a sponge. Cement was applied and the final prosthetics placed. Excess cement was removed during and after cement curing. After confirming there was no extruded cement posteriorly, the final tibial insert was placed. The knee was copiously irrigated and the tourniquet deflated. Hemostasis was obtained. The capsule was closed with interrupted # 2 polyester sutures. The subcutaneous layer was closed with 3-0 Vicryl, and the skin with a running 3-0 V-Lock suture and Dermabond. An Aquacel Ag dressing was applied and the patient was taken to recovery having tolerated the procedure well. Complications: none Post-operative Condition: stable Disposition: PACU Plan for aftercare: The patient will be maintained on a standard total knee replacement protocol with weight bearing as tolerated. The patient will receive aspirin and sequential compression devices for DVT prophylaxis. The patient will be discharged home when safe for the home environment.
--- NOTE | 2021-06-27 18:09 | SUR.PHASEI ---
Late entry: Pt arrived to PACU, room aier sats 85%, 02 via nasal cannula added, sats up to mid 90's, 02 weaned off, room air sats wnl, eating ice no nausea, no pain/discomfort, report to [facility], pt transported up to room, bed low, lock SCD's on, pt left with [facility]ak in stable condition.
[2021-06-27] MEDS: LACTATED RINGERS 1,000 ML 100 ML IV (18:31)
--- NOTE | 2021-06-27 18:38 | PC.NURSE ---
Day Shift - Pt arrived on floor at 1814. Bilateral calf SCD'S applied. Incision on knee is covered w/aquacell dressing and chung wrap CMS is intact and CDI. VSS aside from Bradycardia HR in the mid to low 50's, Pt states that is normal for him. Pt has no feeling in left leg and unable to move at this time. pedal pulses are strong bilaterally and blood return less than two seconds on toes. Did Pt teaching of incentive spirometer and ankle waves Pt verbalized understanding. Bed alarm is on and Pt agrees to call for help. Pt denies pain at this time. Spouse is in the room.
[2021-06-27] MEDS: dilTIAZem CD 180 MG CAP PO (20:46)
[2021-06-27] MEDS: ASPIRIN EC 81 MG TABLET PO (20:46)
[2021-06-27] MEDS: ACETAMINOPHEN 325 MG TABLET 650 MG PO (20:46)
[2021-06-27] MEDS: DOCUSATE 100 MG CAPSULE PO (20:46)
[2021-06-28] MEDS: hydrOXYzine pamoate 25 MG CAPSULE PO (00:03)
[2021-06-28 04:11] VITALS: BP 127/84; PULSE 79; RESP 17; TEMP 36.8; O2SAT 93
[2021-06-28] MEDS: LACTATED RINGERS 1,000 ML 100 ML IV (04:13)
[2021-06-28 05:43] LABS: Hematocrit 46.4 % (41-53); Hemoglobin 15.4 g/dL (13.5-17.5)
--- NOTE | 2021-06-28 06:33 | PC.NURSE ---
Pt had an uneventful shift. Denied pain and rested calmly in bed. He ate his entire dinner and drank water throughout shift. Dressing to L knee CDI. L foot is warm, pink and has strong pulse. Pt had not voided all shift. After bladder scan of 518ml, pt requested to sit at edge of bed to void at 0615. Pt positioned self without assistance and knows not to bear weight on L leg. Pt denied pain meds at the time reporting 4/10 L knee pain.
[2021-06-28 07:49] VITALS: BP 111/75; PULSE 65; TEMP 37.1; O2SAT 93
--- NOTE | 2021-06-28 09:04 | PM.DS.1 ---
History of Present Illness History of Present Illness Date Patient Seen: 06/28/21 Time Patient Seen: 09:05 Chief complaint: LT TKA *OPB* Narrative: The history and physical is contained in the chart previously completed note. Please refer to that note for this information. Discharge Providers Provider Date of admission: June 27, 2021 Discharge Date: 06/28/21 Primary care physician: Bety Carrion DO Consults: 06/27/21 17:43 Consult to Discharge Planning Routine Comment: Consult to Physical Therapy Evaluate & Treat Comment: Physician Instructions: postop TKA protocol Discharge provider: Herve Coley MD Summary Hospital Course Discharge Diagnosis: Left knee osteoarthritis Hospital Course: The patient was admitted to the hospital and taken directly to the operating room on June 27, 2021. He underwent a left total knee replacement without complications. On postoperative day 1 he was quite comfortable but had not yet attempted to ambulate. At the time of this dictation it is predicted he will be able to ambulate well enough to go home later this afternoon. Status at Discharge Cognitive/behavioral status at discharge: at baseline, oriented Functional status at discharge: uses cane/walker Overall status at discharge: patient is progressing back to baseline Time Spent with Patient Time spent: Less than 30 minutes Exam Vital Signs (past 8 hours): - 06/28/21 04:11 06/28/21 07:49 Temperature 98.3 F 98.7 F Pulse Rate 79 65 Respiratory Rate 17 Blood Pressure 127/84 111/75 Pulse Oximetry 93 93 Oxygen Delivery Method Room Air Oxygen Flow Rate 0 Narrative Exam Narrative: Left knee wound is dressed with no drainage on the bandage. Calf is soft. Light touch and motion are intact in the left lower extremity. Objective Labs Result Diagrams: 06/28/21 05:30 Labs: Laboratory Results - last 24 hr 06/28/21 05:30 Hgb 15.4 Hct 46.4 PFSH Medical History Afib (~2016) BCC (basal cell carcinoma) Chronic back pain Erectile dysfunction following radiation therapy History of cardioversion (~2016) History of Mohs micrographic surgery for skin cancer Hypertension Lactose intolerance Prostate cancer (10/12/17) Surgical History History of circumcision History of colonoscopy Hx of arthroscopy of left knee Family History Mother Spindle cell sarcoma Father Hypertension Alzheimer disease Social History marital status: household members: spouse occupational status: employed Smoking Status: Former smoker alcohol intake: current caffeine: No Discharge Assessment & Plan Assessment and Plan Assessment: Doing well postoperative day 1 status post left total knee replacement. He should be able to mobilize well enough to discharge today. He has already urinated. Plan of Treatment: Discharge today. Follow up at my office in 10-14 days. 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 He has been instructed on the use of Tylenol and the ongoing use of Celebrex for pain control. He has been instructed on the use of low-dose aspirin for DVT prophylaxis. Discharge Plan Discharge Plan Patient Disposition: Home Discharge orders & Medications Discharge Orders: Discharge (Order); Ordered 06/28/21 Ordered By: Herve Coley Prescriptions: New acetaminophen 325 mg Tablet 650 mg PO TID 30 Days Qty: 180 0RF aspirin 81 mg Tablet,Delayed Release (Dr/Ec) 81 mg PO BID 42 Days Qty: 84 0RF oxycodone 5 mg Tablet 5 mg PO Q4H PRN (Reason: Pain, Moderate (4-6)) Qty: 40 0RF hydroxyzine pamoate 25 mg Capsule 25 mg PO Q6HR PRN (Reason: Nausea) Qty: 30 0RF Continued celecoxib [Celebrex] 200 mg capsule 200 mg PO BID 0RF diltiazem HCl 180 mg capsule,extended release 24 hr 180 mg PO BID 0RF triamcinolone acetonide 0.1 % cream 1 applictn TOP DAILY 0RF Label Comments: 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 1-1 1/2 hours before intercourse daily as needed. Discontinued aspirin [Adult Aspirin Regimen] 81 mg tablet,delayed release (DR/EC) 81 mg PO DAILY 0RF Follow up/Referrals: Bety Carrion DO [Primary Care Provider] - Herve Coley MD [Physician] - 2 Weeks Diet/Activity/Treatments Diet: Diet as Tolerated and Regular Activity: You may bear weight as tolerated on your right leg. Cold/Heat Therapy: You may apply ice for 15 minutes of every hour to the left knee as needed for pain control. Skin/Wound/Dressing Care Report to your healthcare provider any signs of infection, such as:: chills, fever, night sweats, increased pain, unusual drainage and unusual redness Dressing: Leave the Devyn wrap intact until 3 days after surgery. You may then remove the Devyn wrap and shower normally with the deeper dressing in place. Do not submerge the dressing under water. If the central strip of the deeper dressing becomes saturated with either water or blood, please call the office to have it evaluated. Visit Report/Discharge Packet Instructions: DI for Knee Replacement Stand Alone Forms: Surgery Discharge Discharge Data Primary Care Provider: Bety Carrion Attending Provider: Herve Coley Quality VTE Deep Vein Thrombosis/Pulmonary Embolism Present on Admission: No
[2021-06-28] MEDS: dilTIAZem CD 180 MG CAP PO (09:21)
[2021-06-28] MEDS: ASPIRIN EC 81 MG TABLET PO (09:21)
[2021-06-28] MEDS: CELECOXIB 200 MG CAPSULE PO (09:22)
[2021-06-28] MEDS: ACETAMINOPHEN 325 MG TABLET 650 MG PO (09:22)
[2021-06-28] MEDS: DOCUSATE 100 MG CAPSULE PO (09:22)
--- NOTE | 2021-06-28 09:35 | PT.IIE ---
Current Diagnoses Unilateral primary osteoarthritis, left knee (06/27/21) Surgery Performed Operation Date: 06/27/21 15:00 Actual Procedures p Total Knee Arthroplasty(Left) - Herve Coley MD Medical History (Last Reviewed 06/25/21 @ 07:05 by Puja Bahena RN) Afib (~2016) BCC (basal cell carcinoma) Chronic back pain Erectile dysfunction following radiation therapy History of cardioversion (~2016) History of Mohs micrographic surgery for skin cancer Hypertension Lactose intolerance Prostate cancer (10/12/17) Physical Therapy Inpatient Evaluation/Re-Eval M1 PT/OT-IP Prior Functional Status Start: 06/28/21 12:19 Freq: NEEDED Status: Active Protocol: Document 06/28/21 09:35 AB (Rec: 06/28/21 12:35 AB [email or web address]) Medical Review Prior Functional Status Medical History Reviewed Yes Communication able to make needs known Mobility and Gait pt stated that he is independent with all mobilities and ambulation without AD; uses a hiking pole for uneven surface mobility Social History Household Members spouse Living Arrangements House Number of Floors (Floors) Two Floors Number of Stairs To Enter/Railing? pt will stay on the main level of the house 3 steps R rail to enter the house Home Environment High Toilet,Walk in Shower Home Equipment Front Wheel Walker,Shower Seat without Backrest,Grab Bars Near Toilet Additional Social History Comment pt works as a professor spouse will be off work for ~ 3weeks to assist pt M2 PT-IP Current Condition Start: 06/28/21 12:19 Freq: NEEDED Status: Active Protocol: Document 06/28/21 09:35 AB (Rec: 06/28/21 12:35 AB [email or web address]) Physical Therapy Current Condition Current Condition Evaluation Date 06/28/21 Treatment Diagnosis s/p L TKA; difficulty in walking Onset Date 06/27/21 M3 PT-IP Subjective Start: 06/28/21 12:19 Freq: NEEDED Status: Active Protocol: Document 06/28/21 09:35 AB (Rec: 06/28/21 12:35 AB [id number]) Subjective Physical Therapy Visit Type Type Initial Evaluation Visit Start Time 09:35 Visit Stop Time 10:51 Total Visit Minutes 76 Number of CLINICAL PHARMACY COORDINATOR Visits 0 Therapy Pain Assessment Pain When Pain Assessed At Rest Pain Present Pain Present Pain Reported Location Left Knee Intensity 3 Scale Used increases to 6/10 with mobility Pain Management Techniques Apply Cold,Elevation, Modification of Treatment,Re- positioning,Timing of Activity with Medications M4 PT-IP Mobility and Gait Start: 06/28/21 12:19 Freq: NEEDED Status: Active Protocol: Document 06/28/21 09:35 AB (Rec: 06/28/21 12:35 AB [id number]) PT-Bed Mobility Assessment Supine to Sit Supine to Sit Standby Assistance Sit to Supine Sit to Supine Standby Assistance PT-Transfer Assessment Sit to and From Stand Sit to and from Stand Contact Guard Assistance, Minimal Assistance,1 Person Assistance,Use of Upper Extremities Equipment Transfer Assistive Device Gait Belt,Front Wheeled Walker Orthotic/Prosthetic Devices or Brace: No Comments Mobility Comments pt with spouse and trying to get dressed. pt reaching on the EOB with walker on the side and trying to put his boxers on in standing position . pt sat backdown . positioned FWW in front of pt to pull boxers on. educated pt on safety. pt can be impulsive. pt with increase forward trunk posture and increase L knee flexion in standing. educated pt on upright posture and quads activation. instructed for single leg stance using FWW for support to assess appropriateness for stair climbing. pt initially requiring max A and max cues and was only able to hold for ~ 3 sec. pt educated on techniques and repeated again and min to mod A needed and was able to hold for ~ 6 sec. pt demonstrated bed mobility sit <>supine SBA and cues for techniques. caregiver training conducted. educated spouse on how to use safety belt and how to assist pt. spouse was able to put safety belt on pt. assisted pt with sit to stand and ambulation using FWW ~ 150 ft CGA to min A. pt cued to slow down, quads activation, upright posture and cues for safety. pt sat on w/c and rested. educated pt on stair climbing techniques using R rail. educated spouse on how to assist pt. pt completed up/ down 3 steps holding on to R rail with B hands and spouse assisting min A to mod A but initially requires PT's cues for techniques. repeated again but without cues from PT . pt assisted back to his room. pt ambulated from w/c to chair using FWW CGA to min A with spouse assisting. positioned pt on chair. call light and table placed within reach. Gait Assessment Gait Gait Assistance Required: Contact Guard Assist,Minimum Assistance Distance (Feet) 150 Able to Maintain Weight Bearing Status Yes During Gait Assistive Devices Assistive Device Gait Belt,Front Wheeled Walker Orthotic/Prosthetic Devices or Brace: No Gait Deviations General Gait Pattern Antalgic,Decreased Stride Length,Decreased Feet Clearance,Lateral Trunk Lean Factors Limiting Gait Function Factors Limiting Gait Function Decreased Activity Tolerance, Decreased Strength,Difficulty Following Directions,Limited Range of Motion,Pain,Poor Balance,Poor Safety Awareness Stair Climbing Assessment Evaluation Level of Assist On Stairs Minimal Assistance,Moderate Assistance,1 Person Assistance Devices Stair Climbing Assistive Devices Right Railing Technique/Endurance Stair Climbing Direction Ascend and Descend Stair Climbing Technique Step to Step Number of Steps Climbed 3 Query Text: Stair Climbing Set # Repetitions (reps) 2 PT-Balance Assessment Sitting Balance and Reactions Static Sitting Balance Ability Good Dynamic Sitting Balance Ability Good Standing Balance and Reactions Static Standing Balance Ability Fair Dynamic Standing Balance Ability Fair Device Used FWW M5 PT-IP Objective Assessments Start: 06/28/21 12:19 Freq: NEEDED Status: Active Protocol: Document 06/28/21 09:35 AB (Rec: 06/28/21 12:35 [email or web address]) Orientation Orientation/Cognition Level of Alertness Alert Orientation Name Language Function Ability No Deficits Noted Safety Awareness Decreased Safety Awareness Memory Description No Deficits Noted Gross Range of Motion Lower Extremity ROM Assessment Left Impaired Impairments L knee flexion: ~ 50 deg L knee extension: ~ 30 deg less to 0 Strength Lower Extremity Strength Assessment Left Impaired Hip 3+/5 Knee 3+/5 Coordination Assessment Gross Coordination Gross Coordination WNL Sensation Assessment Sensation Gross Sensation WNL Muscle Tone Muscle Tone WNL Yes M6 PT-IP Treatment Start: 06/28/21 12:19 Freq: NEEDED Status: Active Protocol: Document 06/28/21 09:35 AB (Rec: 06/28/21 12:35 AB [email or web address]) Physical Therapy Treatment Education Education Provided Precautions,Weight Bearing Status,Post-Op Packet,Safety M7 PT-IP Assessment and Plan Start: 06/28/21 12:19 Freq: NEEDED Status: Active Protocol: Document 06/28/21 09:35 AB (Rec: 06/28/21 12:35 AB [email or web address]) PT Summary Assessment and Plan Potential Rehabilitation Potential Fair Status of Condition at Evaluation Stable Summary Impairments Pain,ROM,Strength,Balance, Coordination,Sensation,Tone, Cognition,Bed Mobility, Transfers,Gait,Activity Tolerance Assessment Summary pt requiring min to mod A with mobility. caregiver training conducted and spouse was able to assist pt safety. pt plans to go home today and has outpt PT set up. pt may go home when medically stable. Goals Bed Mobility Goal Independent Transfer Goal Independent,Front Wheeled Walker Gait Goal Independent,Front Wheel Walker Gait Distance 200 Other Goals up/down 3 steps R rail SBA Days to Meet Goals 5 Frequency of Treatment Frequency Of Treatment Twice a Day Treatment Plan Physical Therapy Treatment Plan Bed Mobility Training,Transfer Training,Gait Training, Therapeutic Exercise,Balance Retraining,Post Op Education, Discharge Planning,Hot or Cold Pack,Neuromuscular Re-ed, Coordination Retraining,Manual Therapy Weight Bearing Status Weight Bearing Status Weight Bear as Tolerated Allowed Weight Bearing Amount (enter % LLE WBAT or #) (%) Recommendations To Nursing Amount of Assist Needed 1 Person Assist Discharge Recommendations PT Discharge Recommendations Home with Assistance, Outpatient PT Transportation Needs at Discharge Private Vehicle
[2021-06-28] MEDS: OXYCODONE IR 10 MG TABLET PO (10:22)
--- NOTE | 2021-06-28 12:02 | CM.DANOTE ---
DCP Brief Assessment Note Patient is a 65 yo male who was admitted on 06/27/21 for LTKA. Pt has [employer] for insurance and his PCP is Dr. Bety Carrion. EMR was reviewed. Per Ortho MD, pt tolerated procedure well and likely is stable for d/c home with spouse today pending PT eval and recommendations. PT was able to ambulate pt today with spouse bedside and SW observed spouse participating in CG training with ambulation down the garcia and headed towards stairs for stair training. Pt dressed and appeared ready for d/c and currently no barriers to discharge identified. Brief assessment done due to triage needs and no identified discharge needs currently. Plan: SW to follow for plan of d/c home this afternoon via spouse POV and no SW needs at this time, please refer if indicated. TYSHAWN Hoover
== END 2021-06-28 12:45 | disposition home or self-care (01) ==
LOC: OR 13:15 → AC 13:15
PROVIDERS: PCP Student in an Organized Health Care Education/Training Program; Referring Provider Orthopaedic Surgery; Visit Provider Orthopaedic Surgery
PROC: 0SRD0JZ Replacement of Left Knee Joint with Synthetic Substitute, Open Approach (ICD-10-PCS; CPT 27447; principal; 2021-06-27 15:00)
DX: M17.12 Unilateral primary osteoarthritis, left knee (principal); I10 Essential (primary) hypertension; I48.0 Paroxysmal atrial fibrillation
CPT/HCPCS: 27447; 36415; 73560; 85014; 85018; 97161; 97530; C1776; C9290; J0171; J0690; J2270

== ENCOUNTER 2024-04-03 12:52 | Emergency (ER) | payer MEDICARE, OTHER, SELFPAY ==
[2021-06-27 18:41] VITALS: BMI 33.3
[2024-04-03 13:00] VITALS: BP 181/86; PULSE 75; RESP 18; TEMP 36.4; O2SAT 98; BMI 33.3
--- NOTE | 2024-04-03 15:06 | DI.RAD.S_ITS ---
PROCEDURE: XR FINGER LT MIN 2V INDICATIONS: laceration; finger caught in fan TECHNIQUE: AP hand, 2 views of the 2nd finger(s) acquired. COMPARISON: None. FINDINGS: Bones: No fractures or dislocations. No suspicious bony lesions. Soft tissues: No suspicious soft tissue calcifications. IMPRESSION: No acute bony abnormality. Dictated by: Humza Meraz M.D. on 04/03/2024 at 15:38 Approved by: Humza Meraz M.D. on 04/03/2024 at 15:38
--- NOTE | 2024-04-03 15:09 | ED_ITS ---
HPI - Wound/Laceration <Dasha Blanchard PA-C - Last Filed: 04/03/24 17:29> General Chief Complaint: Wound/Laceration Stated Complaint: laceration L index finger/bleeding Time Seen by Provider: 04/03/24 14:58 Source: patient Mode of arrival: Ambulatory History of Present Illness HPI narrative: 68-year-old male who is currently on oral chemotherapy for prostate cancer presents to the ED status post a left index finger injury sustained just prior to arrival. Patient states that he accidentally stuck his index finger into a fan that he thought was switched off, but returned on when he tried to lift it up, injuring his left index finger. Patient denies numbness, tingling, weakness. Patient states that the tip of his finger was bleeding for quite awhile before it stopped with pressure. Patient endorses pain to the left index finger. Tetanus is up-to-date. Patient notified us of his chemo regimen so we can employ chemo precautions, as advised by his oncology team. Related Data Home Medications Medication Instructions Recorded Confirmed celecoxib 200 mg capsule (Celebrex) 200 mg PO BID 12/06/18 06/27/21 diltiazem HCl 180 mg capsule,24 180 mg PO BID 12/06/18 06/27/21 hr,extended release triamcinolone acetonide 0.1 % 1 applictn topical DAILY 12/06/18 06/27/21 topical cream losartan 25 mg tablet 25 mg PO DAILY 07/19/20 06/27/21 Previous Rx's Medication Instructions Recorded sildenafil (pulm.hypertension) 20 20 mg PO .Daily as needed #60 tabs 07/23/20 mg tablet hydroxyzine pamoate 25 mg capsule 25 mg PO Q6HR PRN Nausea #30 caps 06/28/21 oxycodone 5 mg tablet 5 mg PO Q4H PRN Pain, Moderate 06/28/21 (4-6) #40 tabs Allergies Allergy/AdvReac Type Severity Reaction Status Date / Time adhesive tape Allergy Severe Rash, skin Verified 06/23/21 14:13 blistering if left on too long capsaicin Allergy Severe Anaphylaxis Verified 06/23/21 14:13 Review of Systems <Dasha Blanchard PA-C - Last Filed: 04/03/24 17:29> Constitutional Constitutional: Denies chills, Denies fatigue, Denies fever(s), Denies frequent falls, Denies lethargy and Denies weakness Eyes Eyes: Denies change in vision, Denies eye discharge, Denies irritation and Denies loss of vision ENT Ears, Nose, Mouth, and Throat: Denies change in voice, Denies dizziness, Denies neck pain, Denies sore throat and Denies throat swelling Cardiovascular Cardiovascular: Denies chest pain, Denies irregular heart rhythm, Denies lightheadedness, Denies palpitations, Denies dyspnea, Denies dyspnea on exertion and Denies orthopnea Respiratory Respiratory: Denies cough, Denies dyspnea, Denies dyspnea on exertion and Denies wheezing Gastrointestinal Gastrointestinal: Denies abdominal pain, Denies change in bowel habits, Denies diarrhea, Denies nausea and Denies vomiting Musculoskeletal Musculoskeletal: Denies neck pain and Denies numbness Integumentary/Breasts Skin/Breast: Denies pruritus, Denies erythema, Denies rash and Reports wounds Neurologic Neurologic: Denies behavioral changes, Denies confusion, Denies dizziness, Denies frequent falls, Denies loss of vision, Denies numbness and Denies weakness Psychiatric Psychiatric: Denies anxiety, Denies behavioral changes, Denies confusion, Denies depression, Denies homicidal ideation and Denies suicidal ideation Endocrine Endocrine: Denies fatigue, Denies flushing and Denies palpitations Hematologic/Lymphatic Hematologic/Lymphatic: Denies easy bruising Allergic/Immunologic Allergic/Immunologic: Denies urticaria, Denies throat swelling and Denies wheezing Patient History <Dasha Blanchard PA-C - Last Filed: 04/03/24 17:29> Medical History (Updated 04/03/24 @ 16:09 by Dasha Blanchard PA-C) Lactose intolerance Chronic back pain History of Mohs micrographic surgery for skin cancer BCC (basal cell carcinoma) Prostate cancer (10/12/17) History of cardioversion (~2017) Afib (~2017) Erectile dysfunction following radiation therapy Hypertension Surgical History History of colonoscopy Hx of arthroscopy of left knee History of circumcision Family History Mother Spindle cell sarcoma Father Hypertension Alzheimer disease Social History marital status: household members: spouse occupational status: employed Smoking Status: Former smoker alcohol intake: current caffeine: No Smoking Status: Former smoker alcohol intake frequency: 0-2 drinks per day Alcohol type: wine Substance Use Type: does not use Exam <PHILIPPE Hua Last Filed: 04/03/24 17:29> Narrative Exam Narrative: Const General:?cooperative, healthy appearing and comfortable [facility] Head:?normal to inspection Ears:?hearing grossly normal bilaterally Nose:?external nose normal Face and sinus:?normal facial exam and sinuses nontender Mouth:?oral mucosae normal Throat:?posterior oropharynx normal Eyes General:?appearance normal, both eyes and all related structures Neck Neck:?normal visual inspection and no lymphadenopathy noted Resp Effort & Inspection:?normal respiratory effort Auscultation:?clear to auscultation bilaterally Cardio Rate:?regular rate Rhythm:?regular rhythm Musculoskeletal/integumentary There is a small laceration to the tip of the left index finger. There is full range of motion. Strength and sensation is intact. Neurovascularly intact. Bleeding is controlled with pressure. Neuro General:?patient alert, patient awake and patient oriented x3 Initial Vital Signs Initial Vital Signs: Vital Signs Temperature 97.5 F L 04/03/24 13:00 Pulse Rate 75 04/03/24 13:00 Respiratory Rate 18 04/03/24 13:00 Blood Pressure 181/86 H 04/03/24 13:00 Pulse Oximetry 98 04/03/24 13:00 Oxygen Delivery Method Room Air 04/03/24 13:00 <Geena Rivrea DO - Last Filed: 04/03/24 19:01> Initial Vital Signs Initial Vital Signs: Vital Signs Temperature 97.5 F L 04/03/24 13:00 Pulse Rate 75 04/03/24 13:00 Respiratory Rate 18 04/03/24 13:00 Blood Pressure 181/86 H 04/03/24 13:00 Pulse Oximetry 98 04/03/24 13:00 Oxygen Delivery Method Room Air 04/03/24 13:00 Procedures <PHILIPPE Hua Last Filed: 04/03/24 17:29> Laceration Repair Laceration 1: Site: hand Side (If applicable): left Size (cm): 1 Description: flap Pre-repair: wound explored, irrigated extensively and deep structures intact Skin layer closed with: dermabond Course <Dasha Blanchard PA-C - Last Filed: 04/03/24 17:29> Orders Ordered: ED Orders 04/03/24 15:06 XR finger LT min 2V Stat Discontinued Medications Acetaminophen (Acetaminophen 325 Mg Tablet) 975 mg PO NOW ONE Stop: 04/03/24 16:07 Last Admin: 04/03/24 16:21 Dose: 975 mg Documented By: SPF Vital Signs Vital signs: Vital Signs - 8 hr 04/03/24 13:00 04/03/24 16:37 Temperature 97.5 F L Pulse Rate 75 69 Respiratory Rate 18 16 Blood Pressure 181/86 H Pulse Oximetry 98 97 Oxygen Delivery Method Room Air Room Air <Geena Rivera DO - Last Filed: 04/03/24 19:01> Orders Ordered: ED Orders 04/03/24 15:06 XR finger LT min 2V Stat Discontinued Medications Acetaminophen (Acetaminophen 325 Mg Tablet) 975 mg PO NOW ONE Stop: 04/03/24 16:07 Last Admin: 04/03/24 16:21 Dose: 975 mg Documented By: SPF Vital Signs Vital signs: Vital Signs - 8 hr 04/03/24 13:00 04/03/24 16:37 Temperature 97.5 F L Pulse Rate 75 69 Respiratory Rate 18 16 Blood Pressure 181/86 H Pulse Oximetry 98 97 Oxygen Delivery Method Room Air Room Air MDM - Wound/Laceration <Dasha Blanchard PA-C - Last Filed: 04/03/24 17:29> MDM Narrative Medical decision making narrative: 68-year-old male who is currently on oral chemotherapy for prostate cancer presents to the ED status post a left index finger injury sustained just prior to arrival. Concern for fracture/dislocation versus laceration versus other. Will obtain an x-ray, clean the injury thoroughly, reassess. X-ray shows no acute bony abnormalities. The injury was soaked and cleaned well. The small flap lesion was repaired with Dermabond. Patient given Tylenol for pain. Signs of injury, wound care discussed with patient. Patient verbalized understanding. ED return precautions discussed with patient. Patient verbalized understanding. Medical records reviewed: Yes Discharge Plan Departure Patient Disposition: Home Clinical Impression: Laceration Instructions: DI for Minor Laceration Activity Restrictions/Additional Instructions: You were evaluated in the ED today for a finger injury. The x-ray was normal. It appears that you have a small flap laceration to the tip of your left index finger, which has been repaired with glue. The glue will fall off by itself after a few days. You may keep the finger bandaged, clean, dry. Please watch for signs of infection including worsening redness, pain, warmth, discharge, swelling. Return to the ED if you note any signs of infection. You may take Tylenol for pain. 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 1-1 1/2 hours before intercourse daily as needed. Referrals: Bety Carrion DO [Primary Care Provider] - Stand Alone Forms: Patient Portal/API/Survey ED Sign-out <Geena Rivera DO - Last Filed: 04/03/24 19:01> Cosign ED Attending Isamar Attestation: I was immediately available in the department for consultation.
[2024-04-03] MEDS: ACETAMINOPHEN 325 MG TABLET 975 MG PO (16:21)
[2024-04-03 16:37] VITALS: PULSE 69; RESP 16; O2SAT 97
== END 2024-04-03 16:30 | disposition home or self-care (01) ==
PROVIDERS: Emergency Provider Student in an Organized Health Care Education/Training Program; PCP Student in an Organized Health Care Education/Training Program
DX: S61.211A Laceration without foreign body of left index finger without damage to nail, initial encounter (principal); W31.89XA Contact with other specified machinery, initial encounter
CPT/HCPCS: 73140; 99283